=== PATIENT | female | born 1930 | race Caucasian/White ===

== ENCOUNTER 2016-10-11 14:06 | Inpatient (IN) | payer OTHER ==
[~2016-10-11] VITALS: Ht 144.8 cm; Wt 43.7 kg
[~2016-10-11 14:06] MED LIST: ACETAMINOPHEN325 M1 PO; ATIVAN0.5 MG PO; CHILDREN'S100 MG/55 PO; COLACE100 MG PO; DEPAKOTE125 MG PO; DEPAKOTE250 MG PO; FAMOTIDINE20 MG PO; FELODIPINE ER5 MG PO; HYDRALAZINE HCL50 MG PO; IPRATR-ALBUTEROL3 ML IH; IRON325 MG PO; LISINOPRIL5 MG PO; METOPROLOL TART50 MG PO; MIRTAZAPINE7.5 MG PO; NICOTINE PATCH1 EACH TD; OMEPRAZOLE20 MG PO; PAIN RELIEF650 MG PO; PRAVASTATIN SOD20 MG PO; PROMETHAZINE12.5 M1 PO; TAB-A-VITE1 EACH PO; TIROSINT50 MCG PO; TYLENOL REGULA325 MG PO
[2016-10-11 14:50] LABS: HEMATOCRIT 32.4 % (36.0-46.0); MCH 32.4 PG (29.0-34.0); MCHC 31.8 G/DL (30.0-36.0); MCV 101.9 FL (83-99); MEAN PLAT.VOLUME 9.1 uM^3 (9.5-12.4); PLATELET COUNT 237 K/uL (156-360); RBC DIS.WIDTH-CV 14.4 % (11.8-14.6); RBC DIS.WIDTH-SD 53.8 % (39-53); RED BLOOD COUNT 3.18 M/uL (3.80-5.20); WHITE BLOOD COUNT 11.4 K/uL (4.1-10.2)
[2016-10-11 14:58] LABS: CHLORIDE 109 mEq/L (99-109); POTASSIUM 5.2 mEq/L (3.7-5.4); SODIUM 137 mEq/L (136-147)
[2016-10-11 14:59] LABS: GLUCOSE 151 mg/dL (70-99)
[2016-10-11 15:01] LABS: ANION GAP 10 MEQ/L (2-14)
[2016-10-11 15:03] LABS: GFR ESTIMATE (CALCULATED) 20 mL/min/
[2016-10-11 15:04] LABS: UREA NITROGEN (BUN) 61 mg/dL (9-23)
[2016-10-11] MEDS ORDERED: LOPRESSOR25 MG PO (20:03)
[2016-10-11] MEDS ORDERED: STOOL SOFTENER100 M1 PO (20:04)
[2016-10-11] MEDS ORDERED: ENSURE CLEAR198 ML PO (20:06)
[2016-10-11 21:00] VITALS: BP 190/90
[2016-10-11 21:13] VITALS: BP 190/90
[2016-10-12] VITALS (8 sets, daily range): BP systolic 137–185; BP diastolic 65–94
[2016-10-13 03:10] VITALS: BP 159/67
[2016-10-13 07:33] VITALS: BP 170/75
[2016-10-13 12:02] VITALS: BP 134/63
[2016-10-13 16:10] VITALS: BP 170/72
[2016-10-13 20:34] VITALS: BP 138/62
[2016-10-13 23:44] VITALS: BP 138/74
[2016-10-14 07:46] VITALS: BP 129/61
[2016-10-14 16:03] VITALS: BP 132/94
[2016-10-14] MEDS ORDERED: APRESOLINE25 MG PO (17:19)
[2016-10-14] MEDS ORDERED: CARDIZEM60 MG PO (17:19)
[2016-10-14] MEDS ORDERED: POLYETHYLENE GL17 GM PO (17:20)
[2016-10-14] MEDS ORDERED: DUONEB 2.5-0.5 M3 ML AEROSOL (17:22)
[2016-10-14] MEDS ORDERED: MORPHINE CON20 MG/M1 SL (17:22)
== END 2016-10-14 21:04 | DRG 535 ==
LOC: EME 14:06 → EDOF 18:03 → 3EAST 18:03
PROC: 0HQ1XZZ Repair Face Skin, External Approach (ICD-10-PCS; principal; 2016-10-11)
DX: S72.012A Unspecified intracapsular fracture of left femur, initial encounter for closed fracture (principal); J96.21 Acute and chronic respiratory failure with hypoxia; J90 Pleural effusion, not elsewhere classified; S02.82XB Fracture of other specified skull and facial bones, left side, initial encounter for open fracture; J96.22 Acute and chronic respiratory failure with hypercapnia; S02.2XXA Fracture of nasal bones, initial encounter for closed fracture; F41.9 Anxiety disorder, unspecified; S01.81XA Laceration without foreign body of other part of head, initial encounter; W05.0XXA Fall from non-moving wheelchair, initial encounter; Y92.129 Unspecified place in nursing home as the place of occurrence of the external cause; J44.9 Chronic obstructive pulmonary disease, unspecified; E03.9 Hypothyroidism, unspecified; G30.9 Alzheimer's disease, unspecified; F02.80 Dementia in other diseases classified elsewhere, unspecified severity, without behavioral disturbance, psychotic disturbance, mood disturbance, and anxiety; I12.9 Hypertensive chronic kidney disease with stage 1 through stage 4 chronic kidney disease, or unspecified chronic kidney disease; N18.3 Chronic kidney disease, stage 3 (moderate); Z51.5 Encounter for palliative care; Z87.891 Personal history of nicotine dependence; S05.41XA Penetrating wound of orbit with or without foreign body, right eye, initial encounter
CPT/HCPCS: 70450; 70486; 71020; 71250; 73502; 73560; 74176; 80048; 85027; 93005; 94640 76; 94799; 99202; 99281; 99285; J1940; J2270; J2920